=== PATIENT | female | born 1975 | race Two or more races ===

== ENCOUNTER 2025-03-04 15:52 | Emergency (ER) | payer OTHER ==
[~2025-03-04] VITALS: Ht 157.5 cm; Wt 65.8 kg
[2025-03-04] MEDS ORDERED: SYNTHROID50 MCG PO (16:55)
[2025-03-04] MEDS ORDERED: WELLBUTRIN XL300 MG PO (16:55)
[2025-03-04] MEDS ORDERED: ALDACTONE25 MG PO (16:56)
[2025-03-04] MEDS ORDERED: VASOTEC5 MG PO (16:56)
[2025-03-04] MEDS ORDERED: LAMICTAL200 M1 PO (16:57)
[2025-03-04] MEDS ORDERED: LINZESS290 MCG PO (16:57)
[2025-03-04] MEDS ORDERED: CLONAZEPAM0.5 MG PO (16:58)
[2025-03-04] MEDS ORDERED: DEXILANT60 MG (16:58)
[2025-03-04] MEDS ORDERED: METFORMIN HCL500 M3 (16:58)
[2025-03-04] MEDS ORDERED: OZEMPIC0.25 MG/02 SQ (16:59)
[2025-03-04] MEDS ORDERED: PROTONIX40 MG PO (16:59)
[2025-03-04] MEDS ORDERED: KETOROLAC TROMETHAMINE 30 MG VIAL IV ONE (19:00)
[2025-03-04] MEDS ORDERED: METOCLOPRAMIDE HCL 5 MG/ML VIAL IV ONE (19:00)
[2025-03-04] MEDS ORDERED: FAMOTIDINE/PF 20 MG/2 ML VIAL IV ONE (19:00)
[2025-03-04] MEDS ORDERED: KETOROLAC TROMETHAMINE 30 MG VIAL ONE (19:06)
[2025-03-04] MEDS ORDERED: FAMOTIDINE/PF 20 MG/2 ML VIAL ONE (19:06)
[2025-03-04 20:12] LABS: INR 1.05; PARTIAL THROMBOPLASTIN TIME 24.6 SECONDS (22.0-34.0); PROTHROMBIN TIME 11.4 SECONDS (9.0-11.5)
[2025-03-04 20:13] LABS: HEMATOCRIT 35.6 % (36.0-45.00); HEMOGLOBIN 12.1 g/dL (12.0-15.00); MEAN CELL VOLUME 88.8 fL (80.00-100.00); MEAN CORPUSCULAR HEMOGLOBIN 30.2 pg (27.00-32.0); MEAN CORPUSCULAR HGB CONC 33.9 g/dl (32.0-36.0); PLATELET COUNT 370 K/uL (150-450); RED BLOOD COUNT 4.01 M/uL (4.00-6.00); RED CELL DISTRIBUTION WIDTH 12.8 % (11.5-14.5)
[2025-03-04 20:16] LABS: ALBUMIN 3.9 gm/dL (3.4-5.0); BILIRUBIN TOTAL 0.26 mg/dL (0.3-1.2); CREATININE SERUM 0.56 mg/dL (0.55-1.02); GFR 116.04; GLOBULINA 3.6 G/DL (2.4-3.5); POTASSIUM 3.4 mEq/L (3.5-5.1); TOTAL PROTEIN 7.5 gm/dL (6.4-8.2)
== END 2025-03-04 23:21 | disposition home or self-care (01) ==
LOC: ER 15:53
PROVIDERS: Emergency Medicine
DX: K52.89 Other specified noninfective gastroenteritis and colitis (principal); Z91.040 Latex allergy status; Z88.0 Allergy status to penicillin; K57.30 Diverticulosis of large intestine without perforation or abscess without bleeding
CPT/HCPCS: 36415; 74177; 96365; 99284; J1885; J2765; J3490; Q9965

== ENCOUNTER 2025-03-15 09:09 | Inpatient (IN) | payer OTHER ==
[~2025-03-15] VITALS: Ht 154.9 cm; Wt 61.7 kg
[~2025-03-15 09:09] MED LIST: ALDACTONE25 MG PO; CLONAZEPAM0.5 MG PO; DEXILANT60 MG; LAMICTAL200 M1 PO; LINZESS290 MCG PO; METFORMIN HCL500 M3; OZEMPIC0.25 MG/02 SQ; PROTONIX40 MG PO; SYNTHROID50 MCG PO; VASOTEC5 MG PO; WELLBUTRIN XL300 MG PO
[2025-03-15] MEDS ORDERED: 0.9 % SODIUM CHLORIDE 1,000 ML IV STA (09:29)
[2025-03-15] MEDS ORDERED: ATORVASTATIN CA10 MG PO (09:33)
--- NOTE | 2025-03-15 09:35 | NUR ---
SE RECIBE FEMINA ALERTA Y ORIENTADA X3 QUIEN VIENE A ER PARA SER OPERADA POR LA SUZIE ANJELICA SINGH DE LA VESICULA. 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 SE MIDEN S/V Y SE UBICA.
[2025-03-15] MEDS ORDERED: RINGERS SOLUTION,LACTATED 1,000 ML IV SCH ×2 (10:15→13:30)
[2025-03-15 10:35] LABS: PH,URINE 5.5 (5.0-8.0); URINE APPEARANCE Cloudy; URINE BILIRRUBIN Negative (NEGATIVE); URINE BLOOD Negative; URINE COLOR Dark Yellow; URINE GLUCOSE Negative (NEGATIVE); URINE KETONE Trace (NEGATIVE); URINE LEUKOCYTE Trace; URINE NITRATE Negative; URINE PROTEIN Negative (NEGATIVE); URINE UROBILINOGEN 0.2 E.U./dl
[2025-03-15 10:40] LABS: URINE BACTERIA 1959.5 uL (0.0-1933); URINE EPITHELIAL CELLS 71.8 uL (0.0-38.8); URINE RBC 6.9 uL (0.0-20.8); URINE WBC 24.8 uL (0.0-23.2)
--- NOTE | 2025-03-15 10:56 | NUR ---
SE EDUCA PACIENTE SOBRE TX MEDICO, ESTA REFIERE ENTENDER. SE EXTRAEN MUESTRAS DE LABORATORIO SUZANNE ORDEN MEDICA.
[2025-03-15 11:14] LABS: URINE CAST 0.88 uL (0.0-1.40)
[2025-03-15 11:15] LABS: URINE CRYSTALS MANY /HPF
[2025-03-15 11:22] LABS: BASO % 0.4 % (0.1-1.2); EOS # 0.13 (0.04-0.54); EOS % 2.3 % (0.7-7.0); HEMOGLOBIN 12.7 g/dL (11.2-15.7); LYMPH # 2.82 (1.18-3.74); LYMPH % 50.8 % (19.3-53.1); MONO # 0.38 (0.24-0.82); MONO % 6.8 % (4.7-12.5); NEUT # 2.19 (1.56-6.13); NEUT % 39.5 % (34.0-71.1); PLATELET COUNT 436 K/uL (163-369); RED BLOOD COUNT 4.23 M/uL (3.93-5.22); RED CELL DISTRIBUTION WIDTH 11.6 % (11.6-14.4)
[2025-03-15 11:25] LABS: INR 1.05; PARTIAL THROMBOPLASTIN TIME 27.6 SECONDS (22.0-34.0); PROTHROMBIN TIME 11.4 SECONDS (9.0-11.5)
[2025-03-15 11:26] LABS: CREATININE SERUM 0.61 mg/dL (0.55-1.02); GFR 105.13
[2025-03-15 12:34] VITALS: BP 131/81
[2025-03-15] MEDS ORDERED: METRONIDAZOLE/SODIUM CHLORIDE 500 MG/100 ML PIGGYBACK IV ONE ×2 (12:54→14:00)
[2025-03-15] MEDS ORDERED: levoFLOXacin IN DEXTROSE 5 % 5 MG/ML PIGGYBAG IV ONE ×2 (12:54→14:00)
[2025-03-15] MEDS ORDERED: LIDOCAINE HCL 1%/EPINEPHRINE 20ML VIAL IJ ONE ×2 (12:54→14:00)
[2025-03-15] MEDS ORDERED: BUPIVACAINE HCL/MPF 0.5% 30ML VIAL ONE (12:54)
[2025-03-15] MEDS ORDERED: ONDANSETRON HCL 2 MG/ML VIAL IV PRN (13:30)
[2025-03-15] MEDS ORDERED: MORPHINE SULFATE 4 MG/ML CARTRIDGE IV PRN (13:30)
[2025-03-15] MEDS ORDERED: OxyCODONE HCL 5 MG TABLET (ROXICODONE) PO PRN (13:30)
[2025-03-15] MEDS ORDERED: BUPIVACAINE HCL 30 ML VIAL IJ ONE (13:45)
[2025-03-15] MEDS ORDERED: ACETAMINOPHEN 500 MG GEL..CAP PO SCH (14:00)
[2025-03-15] MEDS ORDERED: SUGAMMADEX SODIUM 200 MG/2 ML VIAL IV ONE (14:20)
[2025-03-15] MEDS ORDERED: MEPERIDINE HCL/PF 50 MG/ML VIAL IV PRN (16:30)
[2025-03-15] MEDS ORDERED: GABAPENTIN 300 MG CAPSULE PO SCH (17:00)
[2025-03-15] MEDS ORDERED: METOCLOPRAMIDE HCL 5 MG/ML VIAL IV SCH (17:00)
[2025-03-15] MEDS ORDERED: POLYETHYLENE GLYCOL 3350 17 GM BLIST.PACK PO SCH (17:00)
[2025-03-15] MEDS ORDERED: METOCLOPRAMIDE HCL 5 MG/ML VIAL ONE (17:02)
[2025-03-15 18:44] VITALS: BP 188/87; O2SAT 100
[2025-03-15] MEDS ORDERED: ENALAPRILAT DIHYDRATE 1.25 MG/ML VIAL IV PRN (19:15)
[2025-03-15] MEDS ORDERED: FAMOTIDINE/PF 20 MG/2 ML VIAL IV PUSH SCH (21:00)
[2025-03-16 00:46] VITALS: BP 116/73; O2SAT 98
[2025-03-16 08:00] VITALS: BP 120/76; O2SAT 98
[2025-03-16] MEDS ORDERED: METOCLOPRAMIDE10 MG PO (08:28)
[2025-03-16] MEDS ORDERED: NEURONTIN300 MG PO (08:29)
[2025-03-16] MEDS ORDERED: DEXILANT60 MG PO (08:29)
[2025-03-16] MEDS ORDERED: CELECOXIB200 MG PO (08:29)
[2025-03-16] MEDS ORDERED: SPIRONOLACTONE 25 MG TABLET PO SCH (09:00)
[2025-03-16] MEDS ORDERED: ENALAPRIL MALEATE 5 MG TABLET PO SCH (09:00)
[2025-03-16] MEDS ORDERED: LACTOBACILLUS ACIDOPHILUS 1 CAP CAP PO SCH (09:00)
[2025-03-17] MEDS ORDERED: LEVOTHYROXINE SODIUM 50 MCG TABLET PO SCH (06:00)
== END 2025-03-16 14:44 | disposition home or self-care (01) | DRG 419 ==
LOC: ER 09:09 → SURH 10:05 → O/R 10:05 → SURH 15:28
PROVIDERS: Emergency Medicine; ADMIT Surgery; ATTEND Surgery
PROC: BF13YZZ Fluoroscopy of Gallbladder and Bile Ducts using Other Contrast (ICD-10-PCS; 2025-03-15)
PROC: 0FT44ZZ Resection of Gallbladder, Percutaneous Endoscopic Approach (ICD-10-PCS; principal; 2025-03-15 12:00)
DX: K81.1 Chronic cholecystitis (principal); K31.84 Gastroparesis; E03.9 Hypothyroidism, unspecified; Z85.3 Personal history of malignant neoplasm of breast; F41.9 Anxiety disorder, unspecified; I10 Essential (primary) hypertension; K59.01 Slow transit constipation; F31.9 Bipolar disorder, unspecified